=== PATIENT | female | born 1930 | race Caucasian/White ===

== ENCOUNTER 2022-06-18 15:58 | Inpatient (IN) ==
[2022-06-18 17:00] LABS: Eosinophils % 0.4 %; Mean Corpuscular Volume 86.2 fL (83.0-100.0)
[2022-06-18 17:02] LABS: Basophils # 0.1 K/mcL (0.0-0.2); Basophils % 0.5 %; Eosinophils # 0.1 K/mcL (0.0-0.6); Hemoglobin 7.8 g/dL (11.5-15.4); Immature Granulocytes % 1.2 % (0-4); Lymphocytes # 1.5 K/mcL (0.6-4.6); Lymphocytes % 9.4 %; Mean Corpuscular HGB Conc 27.9 g/dL (31.6-35.5); Mean Platelet Volume 10.4 fL (9.4-12.4); Monocytes # 1.1 K/mcL (0.0-1.3); Monocytes % 6.6 %; Platelet Count 372 K/mcL (140-400); Red Blood Count 3.25 M/mcL (3.82-4.97); Segmented Neutrophils % 81.9 %; White Blood Count 16.2 K/mcL (4.3-11.1)
[2022-06-18 17:07] LABS: BUN/Creatinine Ratio 12 (6-26); Blood Urea Nitrogen 29 mg/dL (8-23); Calcium 8.7 mg/dL (8.6-10.3); Carbon Dioxide 18 mEq/L (23-29); Chloride 102 mEq/L (98-107); Glucose 244 mg/dL (70-105); Osmolality,Calculated 292 (280-300); Potassium 3.4 mEq/L (3.5-5.1); Sodium 134 mEq/L (136-145)
[2022-06-18 17:08] LABS: Neutrophils # 13.3 K/mcL (1.6-8.9); Troponin I < 0.03 ng/mL (< 0.04)
[2022-06-18 17:30] LABS: Hypochromasia Present (Not Present); Polychromasia 1+ (Not Present)
[2022-06-18] MEDS ORDERED: 0.9 % Sodium Chloride 1,000 ML IVC ONE (17:33)
[2022-06-18 18:12] LABS: Amorphous Sediment,Urine Few per hpf (None-Few); Bacteria,Urine Few per hpf (None-Few); Bilirubin,Urine Negative (Negative); Blood,Urine Negative (Negative); Clarity,Urine Turbid (Clear); Color,Urine Yellow (Yellow); Glucose,Urine (UA) Normal (Normal); Ketones,Urine Trace mg/dL (Negative); Leukocyte Esterase,Urine Small (Negative); Mucus,Urine Few per lpf (None-Few); Nitrite,Urine Negative (Negative); Protein,Urine 50 mg/dL (Neg-Trace); RBC,Urine 0-3 per hpf (0-3); Specific Gravity,Urine 1.017 (1.010-1.025); Squamous Epithelial Cell,Urine Few per hpf (None-Few); Urobilinogen,Urine >=8.0 mg/dL (Normal); WBC,Urine 0-3 per hpf (0-3)
[2022-06-18] MEDS ORDERED: cefTRIAXone 1,000 MG in 0.9 % Sodium Chloride 10 ML IVP ONE (19:24)
[2022-06-18] MEDS ORDERED: Acetaminophen 325 MG TABLET PO PRN (19:26)
[2022-06-18] MEDS ORDERED: Naloxone 0.4 MG/ML INJ IVP PRN (19:26)
[2022-06-18] MEDS ORDERED: Ondansetron 4 MG/2 ML VIAL IVP PRN (19:26)
[2022-06-18] MEDS ORDERED: 0.9 % Sodium Chloride 1,000 ML IVC SCH (19:30)
[2022-06-18] MEDS ORDERED: Dextrose Gel 15 GM/37.5 ML TUBE PO PRN ×2 (20:44)
[2022-06-18] MEDS ORDERED: D5% in Water 1,000 ML IVC PRN (20:44)
[2022-06-18] MEDS ORDERED: *HR* Dextrose 50 % in Water (Syg) 50 ML SYRINGE IVP PRN (20:44)
[2022-06-18 21:06] LABS: Adenovirus Not Detected (Not Detect); Bordetella Pertussis Not Detected (Not Detect); Chlamydophila pneumoniae Not Detected (Not Detect); Coronavirus 229E Not Detected (Not Detect); Coronavirus HKU1 Not Detected (Not Detect); Coronavirus NL63 Not Detected (Not Detect); Coronavirus OC43 Not Detected (Not Detect); Human Metapneumovirus Not Detected (Not Detect); Human Rhinovirus/Enterovirus Not Detected (Not Detect); Influenza A Subtype 2009 H1 Not Detected (Not Detect); Influenza B Not Detected (Not Detect); Mycoplasma pneumoniae Not Detected (Not Detect); Parainfluenza Virus 1 Not Detected (Not Detect); Parainfluenza Virus 2 Not Detected (Not Detect); Parainfluenza Virus 3 Not Detected (Not Detect); Parainfluenza Virus 4 Not Detected (Not Detect); Respiratory Syncytial Virus Not Detected (Not Detect); SARS-CoV-2 Not Detected (Not Detect)
[2022-06-18 21:37] LABS: Thyroid Stimulating Hormone 10.166 mcIU/mL (0.340-5.600)
[2022-06-18] MEDS: Insulin LISPRO 300 UNITS/3 ML VIAL SUBQ SCH (21:55)
[2022-06-18 23:49] LABS: Estimated Average Glucose 111 mg/dl; Hemoglobin A1C 5.5 %
[2022-06-19 05:03] LABS: Hematocrit 21.2 % (35.3-44.9); Mean Corpuscular HGB Conc 29.2 g/dL (31.6-35.5); Mean Corpuscular Volume 85.5 fL (83.0-100.0); Mean Platelet Volume 10.7 fL (9.4-12.4); Platelet Count 270 K/mcL (140-400); Red Blood Count 2.48 M/mcL (3.82-4.97); White Blood Count 9.7 K/mcL (4.3-11.1)
[2022-06-19 05:06] LABS: Hemoglobin 6.2 g/dL (11.5-15.4)
[2022-06-19 05:21] LABS: Calcium 7.6 mg/dL (8.6-10.3); Potassium 3.6 mEq/L (3.5-5.1)
[2022-06-19 06:33] LABS: Mean Corpuscular HGB Conc 28.4 g/dL (31.6-35.5); Mean Platelet Volume 10.4 fL (9.4-12.4); Red Cell Distribution Width 15.1 % (11.5-14.5); White Blood Count 9.8 K/mcL (4.3-11.1)
[2022-06-19 06:34] LABS: Hematocrit 21.1 % (35.3-44.9); Mean Corpuscular Hemoglobin 24.2 pg (28.0-33.3); Mean Corpuscular Volume 85.1 fL (83.0-100.0); Platelet Count 266 K/mcL (140-400); Red Blood Count 2.48 M/mcL (3.82-4.97)
[2022-06-19] MEDS ORDERED: 0.9 % Sodium Chloride 250 ML ONE (07:32)
[2022-06-19] MEDS: Pantoprazole 40 MG VIAL IVP SCH ×2 (07:35→18:13)
[2022-06-19] MEDS: cefTRIAXone 1,000 MG in 0.9 % Sodium Chloride Mini Bag 100 ML IVPB SCH (07:37)
[2022-06-19] MEDS: Insulin LISPRO 300 UNITS/3 ML VIAL SUBQ SCH ×2 (07:37→12:54)
[2022-06-19 12:12] LABS: Protein/Creatinine Ratio,Urine 0.28 mg/mg (0.00-0.20); Sodium, Urine 47.3 mEq/L
[2022-06-19] MEDS: 0.9 % Sodium Chloride 1,000 ML IVC SCH ×2 (13:10→21:30)
[2022-06-19 14:35] LABS: Hematocrit 25.8 % (35.3-44.9); Hemoglobin 7.6 g/dL (11.5-15.4)
[2022-06-19 14:42] LABS: INR 1.2; Prothrombin Time 13.1 Seconds (9.4-12.1)
[2022-06-19] MEDS ORDERED: SODIUM CHLORIDE/NAHCO3/KCL/PEG 4,000 ML SOLN.RECON PO ONE (17:00)
[2022-06-20] MEDS: Pantoprazole 40 MG VIAL IVP SCH ×2 (06:52→15:38)
[2022-06-20 09:08] LABS: Basophils # 0.1 K/mcL (0.0-0.2); Basophils % 0.5 %; Eosinophils # 0.3 K/mcL (0.0-0.6); Eosinophils % 2.8 %; Hematocrit 25.9 % (35.3-44.9); Hemoglobin 7.7 g/dL (11.5-15.4); Immature Granulocytes % 1.7 % (0-4); Lymphocytes # 1.6 K/mcL (0.6-4.6); Lymphocytes % 17.4 %; Mean Corpuscular HGB Conc 29.7 g/dL (31.6-35.5); Mean Corpuscular Hemoglobin 25.5 pg (28.0-33.3); Mean Corpuscular Volume 85.8 fL (83.0-100.0); Mean Platelet Volume 10.1 fL (9.4-12.4); Monocytes # 0.8 K/mcL (0.0-1.3); Monocytes % 8.4 %; Neutrophils # 6.3 K/mcL (1.6-8.9); Platelet Count 261 K/mcL (140-400); Red Blood Count 3.02 M/mcL (3.82-4.97); Red Cell Distribution Width 14.9 % (11.5-14.5); Segmented Neutrophils % 69.2 %; White Blood Count 9.2 K/mcL (4.3-11.1)
[2022-06-20 09:23] LABS: Calcium 7.6 mg/dL (8.6-10.3); Potassium 3.4 mEq/L (3.5-5.1)
[2022-06-20] MEDS: cefTRIAXone 1,000 MG in 0.9 % Sodium Chloride Mini Bag 100 ML IVPB SCH (09:33)
[2022-06-20] MEDS ORDERED: Lidocaine -MPF 2% 2 ML VIAL ONE (14:20)
[2022-06-20] MEDS: 0.9 % Sodium Chloride 1,000 ML IVC SCH (15:38)
[2022-06-20] MEDS: Amoxicillin 500 MG CAPSULE PO SCH ×2 (16:02→20:24)
[2022-06-21 03:50] LABS: Basophils # 0.1 K/mcL (0.0-0.2); Basophils % 0.7 %; Eosinophils # 0.2 K/mcL (0.0-0.6); Eosinophils % 2.2 %; Hematocrit 27.7 % (35.3-44.9); Hemoglobin 8.2 g/dL (11.5-15.4); Immature Granulocytes % 1.3 % (0-4); Lymphocytes # 1.7 K/mcL (0.6-4.6); Lymphocytes % 15.8 %; Mean Corpuscular HGB Conc 29.6 g/dL (31.6-35.5); Mean Corpuscular Hemoglobin 25.5 pg (28.0-33.3); Mean Platelet Volume 10.4 fL (9.4-12.4); Monocytes # 0.8 K/mcL (0.0-1.3); Monocytes % 7.8 %; Neutrophils # 7.7 K/mcL (1.6-8.9); Platelet Count 281 K/mcL (140-400); Red Blood Count 3.22 M/mcL (3.82-4.97); Red Cell Distribution Width 14.8 % (11.5-14.5); Segmented Neutrophils % 72.2 %; White Blood Count 10.6 K/mcL (4.3-11.1)
[2022-06-21 04:07] LABS: Calcium 7.8 mg/dL (8.6-10.3); Magnesium 1.5 mg/dL (1.6-2.6); Phosphorous 2.7 mg/dL (2.7-4.5)
[2022-06-21] MEDS: 0.9 % Sodium Chloride 1,000 ML IVC SCH (04:37)
[2022-06-21] MEDS: Amoxicillin 500 MG CAPSULE PO SCH ×2 (07:47→21:01)
[2022-06-21] MEDS ORDERED: Ringers Solution, Lactated 1,000 ML IVC SCH (11:30)
[2022-06-21] MEDS: amLODIPine 5 MG TABLET PO SCH (11:48)
[2022-06-21] MEDS ORDERED: methylPREDNISolone 125 MG/2 ML VIAL IVP ONE (12:43)
[2022-06-21] MEDS ORDERED: levoFLOXacin 750 MG/150 ML 750 MG/150 ML BAG IVPB SCH (12:45)
[2022-06-21] MEDS: Ipratropium/Albuterol Neb 3 ML IH SCH ×4 (14:28→23:36)
[2022-06-22 03:16] LABS: Basophils % 0.2 %; Hematocrit 28.3 % (35.3-44.9); Hemoglobin 8.3 g/dL (11.5-15.4); Immature Granulocytes % 3.3 % (0-4); Lymphocytes # 0.6 K/mcL (0.6-4.6); Lymphocytes % 6.1 %; Mean Corpuscular HGB Conc 29.3 g/dL (31.6-35.5); Mean Corpuscular Hemoglobin 24.7 pg (28.0-33.3); Mean Corpuscular Volume 84.2 fL (83.0-100.0); Mean Platelet Volume 10.1 fL (9.4-12.4); Monocytes # 0.2 K/mcL (0.0-1.3); Monocytes % 1.6 %; Neutrophils # 8.5 K/mcL (1.6-8.9); Platelet Count 328 K/mcL (140-400); Red Blood Count 3.36 M/mcL (3.82-4.97); Red Cell Distribution Width 15.1 % (11.5-14.5); Segmented Neutrophils % 88.8 %; White Blood Count 9.6 K/mcL (4.3-11.1)
[2022-06-22 03:36] LABS: Calcium 8.6 mg/dL (8.6-10.3); Magnesium 1.5 mg/dL (1.6-2.6); Phosphorous 2.7 mg/dL (2.7-4.5); Potassium 3.8 mEq/L (3.5-5.1)
[2022-06-22] MEDS: Ipratropium/Albuterol Neb 3 ML IH SCH ×2 (03:57→07:31)
[2022-06-22] MEDS: amLODIPine 5 MG TABLET PO SCH (09:31)
[2022-06-22] MEDS: Amoxicillin 500 MG CAPSULE PO SCH ×2 (09:31→22:14)
[2022-06-22] MEDS ORDERED: Ipratropium/Albuterol Neb 3 ML IH PRN (11:14)
[2022-06-23] MEDS: Levalbuterol Neb 1.25 MG/3 ML IH SCH ×2 (03:30→07:34)
[2022-06-23] MEDS: Amoxicillin 500 MG CAPSULE PO SCH (07:43)
[2022-06-23] MEDS: amLODIPine 5 MG TABLET PO SCH (07:43)
[2022-06-23 09:21] LABS: Calcium 8.7 mg/dL (8.6-10.3); Magnesium 1.7 mg/dL (1.6-2.6); Phosphorous 2.7 mg/dL (2.7-4.5); Potassium 3.8 mEq/L (3.5-5.1)
[2022-06-23 11:14] VITALS: BP 141/77; PULSE 87; TEMP 97.6; O2SAT 94
== END 2022-06-23 14:36 | disposition home or self-care (01) | DRG 871 ==
LOC: EMEROOARM 15:58 → 3BNU 15:58 → SUATTDRO 19:46 → 3BNU 20:40
PROVIDERS: ADMIT Student in an Organized Health Care Education/Training Program; ATTEND Internal Medicine